=== PATIENT | male | born 1995 | race African-American/Black ===

== ENCOUNTER 2019-02-23 15:20 | Emergency (ER) | payer OTHER ==
[~2019-02-23] VITALS: Ht 180.3 cm; Wt 81.7 kg
[~2019-02-23 15:20] MED LIST: AMNESTEEM40 MG PO; BACTRIM DS TAB1 EACH PO; FLEXERIL PO; HYDROCODON-ACE1 EAC7 PO; IBUPROFEN 800800 M1 PO; KEFLEX500 MG PO; NOHOMEMEDICATIONS; NORCO 5-325 TA1 EACH PO; TRIAMCINOLONE A15 G1 TOP
[2019-02-23] MEDS ORDERED: MOBIC7.5 MG PO (17:14)
[2019-02-23] MEDS ORDERED: CYCLOBENZAPRINE5 MG PO (17:14)
[2019-02-23] MEDS ORDERED: ASPERCREME1 EACH TRANSDERM (17:14)
[2019-02-23 17:25] VITALS: BP 151/60
== END 2019-02-23 17:26 | disposition home or self-care (01) ==
LOC: ER 15:20
DX: M54.2 Cervicalgia (principal); M54.5 Low back pain; V89.2XXA Person injured in unspecified motor-vehicle accident, traffic, initial encounter; Y92.89 Other specified places as the place of occurrence of the external cause; Y93.89 Activity, other specified; Y99.8 Other external cause status

== ENCOUNTER 2020-02-08 11:46 | Emergency (ER) | payer BC ==
[~2020-02-08] VITALS: Ht 182.9 cm; Wt 81.7 kg
[~2020-02-08 11:46] MED LIST changes: +ASPERCREME1 EACH TRANSDERM; +CYCLOBENZAPRINE5 MG PO; +MOBIC7.5 MG PO
[2020-02-08] MEDS ORDERED: CATAPRES0.1 MG PO (13:05)
[2020-02-08 14:01] VITALS: BP 129/75
== END 2020-02-08 14:18 | disposition home or self-care (01) ==
LOC: ER 11:46
DX: R05 Cough (principal); Z20.828 Contact with and (suspected) exposure to other viral communicable diseases; R09.81 Nasal congestion; M79.10 Myalgia, unspecified site; R50.9 Fever, unspecified; R42 Dizziness and giddiness; R53.1 Weakness; R61 Generalized hyperhidrosis